=== PATIENT | female | born 1990 | race African-American/Black ===

== ENCOUNTER 2024-02-21 23:35 | Emergency (ER) | payer OTHER, SELFPAY ==
[2024-02-21 23:44] VITALS: BP 165/109; PULSE 94; RESP 18; TEMP 36.1; O2SAT 98
--- NOTE | 2024-02-22 00:14 | ED.GENADUL_ITS ---
Discharge Plan Disposition Patient Disposition: Home Condition: Good Discharge Details Clinical Impression: Nausea & vomiting, Ovarian cyst ED Provider: Bairon Tena Home Meds and New Rx's Prescriptions: No Action losartan [Cozaar] 25 mg tablet 25 mg PO DAILY Discharge Instructions Instructions: Nausea and vomiting in adults Additional Instructions: At this time your workup is returned reassuring. Aside for a right sided ovarian cyst, there were no significant abnormalities have been found on your imaging. Your laboratory workup is thankfully notably stable. Please take Tylenol and Motrin as needed for pain. Please drink plenty fluids and stay well-hydrated. Avoid any greasy or fatty foods. Please take the Zofran only as needed for nausea. If you notice any worsening of your symptoms, or any new symptoms such as vomiting, diarrhea, fever, chills, shortness of breath, chest pain, numbness, weakness, or fainting , please return immediately to the emerge ncy department for reevaluation. Please follow up with your primary care provider as soon as possible for reassessment and reevaluation. As always, it was a pleasure participating in your medical care today. HPI General Date/Time Provider Initiated Documentation: 02/21/24 23:43 . HPI Narrative: This is a pleasant 34-year-old -[place]ian female with a past medical history of hypertension who presents today for abdominal pain. Patient states that this afternoon early this evening she had a meal, after which she developed mild sharp left lower quadrant pain at around 7 PM. That gradually transition to the lower right lower quadrant in addition to continuing in the left. Pain is now worse in the right lower quadrant. She has had nausea and an episode of vomiting. She denies any hemoptysis or hematochezia. No diarrhea. She states that her last menstrual period was a week ago. She denies any urinary complaints. No other modifying factors. No other complaints at this time. No history of prior abdominal surgeries. Related Data Home Medications ?Medication ?Instructions ?Recorded ?Confirmed losartan 25 mg tablet (Cozaar) 25 mg PO DAILY 02/21/24 02/21/24 Allergies Allergy/AdvReac Type Severity Reaction Status Date / Time No Known Allergies Allergy Unverified 02/21/24 23:47 General Stated Complaint: Nausea/Vomit/Diar MARCO A: 4 Exam Narrative Exam Narrative: 1.Const: Well-nourished, Well-developed, appearing stated age 2.Eyes: PERRL, no conjunctival injection, and symmetrical lids. 3.ENT: Atraumatic external nose and ears. Moist MM. Neck: Symmetric, trachea midline, No thyromegaly. 4.CVS: +S1/S2, Peripheral pulses 2+ and equal in all extremities. Brisk capillary refill in all extremities. 5.RESP: Unlabored respiratory effort. Clear to auscultation bilaterally. No wheezes rales or rhonchi 6.GI: Soft, nondistended. No guarding or rebound. Mild tenderness in left lower quadrant, mild to moderate tenderness in the right lower quadrant. Negative Rovsing sign. Negative obturator and psoas sign. Negative heel strike test. 7.MSK: Normocephalic/Atraumatic, Extremities w/o deformity or ttp No cyanosis or clubbing, Normal movement of all extremities 8.Skin: Warm, Dry. No rashes or lesions. 9.Neuro: formulation chemist II-XII grossly intact. Sensation grossly intact, no focal neurologic deficits. 10.Psych: (AAO) x3. Appropriate mood and affect Course Vital Signs Vital signs: Vital Signs Temperature 36.1 C L 02/21/24 23:44 Pulse 94 H 02/21/24 23:44 Respiratory Rate 18 02/21/24 23:44 Blood Pressure 165/109 H 02/21/24 23:44 Pulse Oximetry 98 02/21/24 23:44 Temperature 36.1 C L 02/21/24 23:44 Temperature Source Temporal Artery Scan 02/21/24 23:44 Pulse 94 H 02/21/24 23:44 Respiratory Rate 18 02/21/24 23:44 Blood Pressure 165/109 H 02/21/24 23:44 Blood Pressure Position Sitting 02/21/24 23:44 Pulse Oximetry 98 02/21/24 23:44 Oxygen Delivery Method Room Air 02/21/24 23:44 Oxygen Flow Rate 0 02/21/24 23:44 Medical Decision Making This is a pleasant 34-year-old -Maldivian female with a past medical history of hypertension who presents today for abdominal pain. Patient states that this afternoon early this evening she had a meal, after which she developed mild sharp left lower quadrant pain at around 7 PM. That gradually transition to the lower right lower quadrant in addition to continuing in the left. Pain is now worse in the right lower quadrant. She has had nausea and an episode of vomiting. She denies any hemoptysis or hematochezia. No diarrhea. She states that her last menstrual period was a week ago. She denies any urinary complaints. No other modifying factors. No other complaints at this time. No history of prior abdominal surgeries. Patient demonstrates left and right lower quadrant tenderness with tenderness more so on the right. No urinary complaints. Differential includes appendicitis, gastroenteritis. Less likely ovarian pathology. Symptoms appear inconsistent clinically with ovarian torsion. Will get CT imaging, rehydrate treat her pain with NSAIDs, monitor closely and reassess. 1:55 AM On reassessment patient is feeling much better. No signs of an acute surgical abdomen. Vital signs stable. CT scan shows evidence of a right-sided ovarian cyst. No evidence of torsion. Patient feels well, stable for discharge. Laboratory workup benign. Will recommend continued NSAID therapy. Will send Zofran for home use. I have extensively reviewed the treatment plan and discharge instructions with the patient and their family. I have addressed all patient concerns at this time. The patient and family was made aware of what symptoms to monitor for that would warrant a return to the emergency department. Discussed the plan with the patient and family, they demonstrate verbal understanding and agreement with our assessment and plan at this time. The documentation in this chart was dictated using [employer] dictation software. Ple ase excuse any dictation errors. FINDINGS: Lungs: Lung bases clear. Liver: Normal appearing liver. Gallbladder and biliary ducts: Gallbladder partially collapsed. No calcified gallstones seen. No biliary dilatation. Pancreas: Normal appearing pancreas. Spleen: Normal appearing spleen. Adrenal glands: Normal appearing adrenal glands. Kidneys and ureters: Normal appearing kidneys. No hydronephrosis. Stomach and bowel: No oral contrast. Stomach partially distended with ingested material and fluid. No small bowel dilatation to suggest obstruction. Normal-appearing colon. No evidence of diverticulitis or colitis. Appendix: Normal appendix. Intraperitoneal space: Trace fluid in the pelvis. No free air. Vasculature: Normal caliber abdominal aorta. Lymph nodes: Scattered small mesenteric lymph nodes, nonspecific. Urinary bladder: Normal appearing urinary bladder. Reproductive: Anteverted uterus, partially obscured but normal in size. Ovaries also partially obscured. 1.2 cm x 1.6 cm peripherally enhancing right ovarian corpus luteum, best demonstrated by image 32 of series 4. Trace fluid in the right adnexal region and in the cul-de-sac of Jed. Bones/joints: No acute fracture seen among the bones of the abdomen or pelvis. 6 lumbar type vertebral bodies with tiny vestigial ribs at L1 and its L6 vertebral body which is hemisacralized on the left. Please note that vertebral body numbering is not definitive in the absence of complete spinal visualization. Bilateral facet arthrosis in the lower lumbar region. Soft tissues: No significant ventral or inguinal hernia. IMPRESSION: 1. 1.2 cm x 1.6 cm right ovarian corpus luteum. Trace fluid in the right adnexal region and cul-de-sac of Jed. 2. No acute bowel pathology demonstrated. Thank you for allowing us to participate in the care of your patient. Dictated and Authenticated by: Mic Everett MD 02/22/2024 1:51 AM Eastern Time ([place] & [place]) Quality:SDOH Health Related Social Needs: No Data to Display PFSH All Active Problems (Updated 02/22/24 @ 01:56 by Bairon Tena DO) Ovarian cyst (Acute) Nausea & vomiting (Acute) Social History Smoking risk assessment performed?: No Alcohol Intake: never Substance use type: does not use
[2024-02-22 00:17] LABS: Lactate 1.6 mmol/L (0.6-1.4)
[2024-02-22 00:20] LABS: Abs Immature Grans 0.03 10^3/uL (0.0-0.06); Absolute Basophil Count 0.03 10^3/uL (0.0-0.2); Absolute Eosinophil Count 0.03 10^3/uL (0.0-0.7); Absolute Lymphocyte Count 1.36 10^3/uL (1.2-3.4); Absolute Monocyte Count 0.39 10^3/uL (0.1-0.8); Absolute Neutrophil Count 7.36 10^3/uL (1.2-6.7); Basophils % 0.3 %; Eosinophils % 0.3 %; HCT 41.6 % (36.0-46.0); HGB 12.8 g/dL (11.2-15.7); Immature Grans % 0.3 %; Lymphocytes % 14.8 %; MCH 22.6 pg (27.0-33.0); MCHC 30.8 % (32.0-36.0); MCV 73 fL (80-95); MPV 10.6 fL (8.0-11.0); Monocytes % 4.2 %; Neutrophils % 80.1 %; Platelet Count 275 10^3/uL (130-400); RBC 5.67 10^6/uL (3.93-5.22); RDW 15.5 % (11.7-14.6); RDW-SD 39.9 fL
[2024-02-22] MEDS: ACETAMINOPHEN 1,000 MG/100 ML BAG 400 MG IVPB (00:20)
[2024-02-22] MEDS: Ketorolac 15 MG/ML VIAL IVP (00:21)
[2024-02-22] MEDS: Normal Saline 1,000 ML 1000 ML IV (00:21)
[2024-02-22 00:32] LABS: Lipase 32 U/L (<78)
[2024-02-22 00:35] LABS: ALT 30 U/L (14-59); AST 18 U/L (15-37); Albumin 3.7 g/dL (3.4-5.0); Alkaline Phosphatase 65 U/L (46-116); Anion Gap 6.7 mmol/L (3-11); BUN 16 mg/dL (7-18); Bilirubin, Total 0.21 mg/dL (0.2-1.0); CO2 30.3 mmol/L (21.0-32.0); CREATININE 0.9 mg/dL (0.55-1.02); Calcium 9.5 mg/dL (8.5-10.1); Chloride 103 mmol/L (98-107); Glucose 135 mg/dL (74-106); Potassium 3.6 mmol/L (3.5-5.1); Sodium 140 mmol/L (136-145); Total Protein 7.5 g/dL (6.4-8.2)
[2024-02-22 00:40] LABS: Bilirubin Negative (Negative); Blood Trace-intact (Negative); Clarity Clear (Clear); Glucose Negative (Negative); Ketones Negative (Negative); Leukocyte Esterase Negative (Negative); Nitrite Negative (Negative); Urobilinogen 0.2 mg/dL (Up to 0.2); pH 7.5 (5-8)
[2024-02-22 00:47] LABS: Bacteria Negative HPF (Negative); C & S Indicated? No; Casts Negative LPF (Negative); Crystals Negative HPF (Negative); Epithelial Cells Rare HPF (Negative); Mucus Negative (Negative); RBC 0-2 HPF (0-2); WBC 0-2 HPF (0-5)
[2024-02-22 00:48] LABS: Diff Comment RBC Morph Reviewed; Microcytosis 1+
[2024-02-22] MEDS: Omnipaque 350 MG/ML 100 ML BTL IJ (01:01)
[2024-02-22] MEDS: Normal Saline - Diluent 50 ML VIAL IJ (01:02)
--- NOTE | 2024-02-22 01:02 | DI.CT_ITS ---
Exam(s) CT ABDOMEN PELVIS W EXAM: CT ABDOMEN PELVIS W CLINICAL HISTORY: right lower quad tenderness, eval for appe. TECHNIQUE: Imaging Protocol: Axial computed tomography images with coronal and sagittal reformatted images were created and reviewed CONTRAST MATERIAL: Intravenous: Omnipaque 350 Contrast volume:100 ml Oral: no COMPARISON: No exams were available for comparison FINDINGS: ABDOMEN and PELVIS: Lung Bases: No acute findings. Liver: Normal density. No suspicious mass. Gallbladder and biliary tract: No radiodense calculus. No wall thickening or pericholecystic fluid. No biliary dilation. Pancreas: Normal density. No abnormal calcifications or inflammatory process. No evidence of mass. Spleen: Normal. Kidneys: Normal size, contour and axis. No radiodense stones. No obstructive uropathy. No suspicious masses seen. Adrenal glands: No masses seen. Vasculature: Abdominal aorta non-dilated. Soft tissues: Unremarkable. Bladder: No gross wall thickening. No calculi.No focal mass. Bowel: No obstruction. No bowel wall thickening. Appendix normal. Peritoneal cavity: No ascites. No focal collection. No mesenteric inflammatory response. No free air . Bones: Unremarkable for age. Reproductive organs: Unremarkable. Lymph nodes: No pathologically enlarged lymph nodes. IMPRESSION:: No acute abnormality in the abdomen or pelvis. RADIATION DOSE DELIVERED: 1,095.56mGy.cm Total DLP DATA REPOSITORY: All CT scans at this facility are submitted to the National Radiology Data Registry (NRDR) Dose Index Registry (DIR) with the [employer] [place] [employer] ([employer]). RADIATION OPTIMIZATION: All CT scans at this facility use at least one of these dose optimization te chniques: automated exposure control; mA and/or kV adjustment per patient size (includes targeted exa ms where dose is matched to clinical indication); or iterative reconstruction.
--- NOTE | 2024-02-22 01:51 | DI.VRAD_ITS ---
PROCEDURE INFORMATION: Exam: CT Abdomen And Pelvis With Contrast Exam date and time: 02/22/2024 12:52 AM Age: 34 years old Clinical indication: Abdominal pain; Localized; Right lower quadrant (rlq); Patient HX: Right lower quad tenderness, eval for appe TECHNIQUE: Imaging protocol: Computed tomography of the abdomen and pelvis with contrast. Radiation optimization: All CT scans at this facility use at least one of these dose optimization techniques: automated exposure control; mA and/or kV adjustment per patient size (includes targeted exams where dose is matched to clinical indication); or iterative reconstruction. Contrast material: [id number]; Contrast volume: 100 ml; Contrast route: INTRAVENOUS (IV); COMPARISON: No relevant prior studies available. FINDINGS: Lungs: Lung bases clear. Liver: Normal appearing liver. Gallbladder and biliary ducts: Gallbladder partially collapsed. No calcified gallstones seen. No biliary dilatation. Pancreas: Normal appearing pancreas. Spleen: Normal appearing spleen. Adrenal glands: Normal appearing adrenal glands. Kidneys and ureters: Normal appearing kidneys. No hydronephrosis. Stomach and bowel: No oral contrast. Stomach partially distended with ingested material and fluid. No small bowel dilatation to suggest obstruction. Normal-appearing colon. No evidence of diverticulitis or colitis. Appendix: Normal appendix. Intraperitoneal space: Trace fluid in the pelvis. No free air. Vasculature: Normal caliber abdominal aorta. Lymph nodes: Scattered small mesenteric lymph nodes, nonspecific. Urinary bladder: Normal appearing urinary bladder. Reproductive: Anteverted uterus, partially obscured but normal in size. Ovaries also partially obscured. 1.2 cm x 1.6 cm peripherally enhancing right ovarian corpus luteum, best demonstrated by image 32 of series 4. Trace fluid in the right adnexal region and in the cul-de-sac of Jed. Bones/joints: No acute fracture seen among the bones of the abdomen or pelvis. 6 lumbar type vertebral bodies with tiny vestigial ribs at L1 and its L6 vertebral body which is hemisacralized on the left. Please note that vertebral body numbering is not definitive in the absence of complete spinal visualization. Bilateral facet arthrosis in the lower lumbar region. Soft tissues: No significant ventral or inguinal hernia. IMPRESSION: 1. 1.2 cm x 1.6 cm right ovarian corpus luteum. Trace fluid in the right adnexal region and cul-de-sac of Jed. 2. No acute bowel pathology demonstrated. Dictated and Authenticated by: Mic Everett MD. Ordering:HOLLI Waddell MD
[2024-02-22] MEDS: Ondansetron O.D.T. 4 MG TABEF, 3 TABS/BTL PO (01:58)
== END 2024-02-22 01:58 | disposition home or self-care (01) ==
LOC: ER 02-22 02:00
PROVIDERS: Emergency Provider Student in an Organized Health Care Education/Training Program
DX: R11.2 Nausea with vomiting, unspecified (principal); N83.209 Unspecified ovarian cyst, unspecified side; R10.32 Left lower quadrant pain; I10 Essential (primary) hypertension; R10.31 Right lower quadrant pain
CPT/HCPCS: 36415; 80053; 81025; 83690; 96365; 96375; 99285; 74177; 81003; 81015; 83605; 85025; 99284; J0131; J1885; J3490